=== PATIENT | female | born 1945 | race Asian ===

== ENCOUNTER 2021-08-04 15:39 | Emergency (ER) | payer MEDICARE, MEDICAID ==
[~2021-08-04] VITALS: Ht 121.9 cm; Wt 54.5 kg
[2021-08-04 18:24] LABS: BASOPHILS % (AUTO) 0.5 % (0-1); EOSINOPHILS # (AUTO) 0.1 X10'3 (0-0.9); EOSINOPHILS % (AUTO) 1.9 % (0-6); HEMATOCRIT 35.3 % (35.0-45.0); HEMOGLOBIN 11.8 g/dl (12.0-16.0); LYMPHOCYTES # (AUTO) 1.4 X10'3 (1.1-4.8); LYMPHOCYTES % (AUTO) 27.8 % (21-51); MEAN CORPUSCULAR HGB CONC 33.4 g/dL (33.0-36.5); MEAN CORPUSCULAR VOLUME 98.8 FL (78-98); MEAN PLATELET VOLUME 7.1 FL (7.4-10.4); MONOCYTES # (AUTO) 0.3 X10'3 (0-0.9); MONOCYTES % (AUTO) 6.6 % (2-12); NEUTROPHILS # (AUTO) 3.1 X10'3 (1.8-7.7); NEUTROPHILS % (AUTO) 63.2 % (42-75); PLATELET COUNT 137 X10'3 (140-440); RED BLOOD COUNT 3.57 X10'6 (4.20-5.60); RED CELL DISTRIBUTION WIDTH 15.1 % (11.5-14.5); WHITE BLOOD COUNT 4.9 X10'3 (4.5-11.0)
[2021-08-04 18:53] LABS: ALANINE AMINOTRANSFERASE 21 U/L (12-78); ALBUMIN 3.6 G/DL (3.4-5.0); ALBUMIN/GLOBULIN RATIO 0.9 (1.1-1.5); ALKALINE PHOSPHATASE 114 IU/L (46-116); ANION GAP 11 (8-16); ASPARTATE AMINO TRANSFERASE 18 U/L (10-37); BILIRUBIN,TOTAL 0.4 MG/DL (0.1-1.0); BLOOD UREA NITROGEN 27 MG/DL (7-18); BUN/CREATININE RATIO 7.8 (6.6-38.0); CALCIUM 8.1 MG/DL (8.5-10.1); CHLORIDE 101 MMOL/L (99-107); CREATININE 3.48 MG/DL (0.40-0.90); GLUCOSE 102 MG/DL (70-104); POTASSIUM 5.3 MMOL/L (3.5-5.1); SODIUM 137 MMOL/L (135-145); TOTAL CARBON DIOXIDE 25.3 MMOL/L (24-32); TOTAL PROTEIN 7.8 G/DL (6.4-8.2); eGFR 13 ML/MIN
[2021-08-04 18:58] LABS: MAGNESIUM 2.6 MG/DL (1.5-2.4)
[2021-08-04 20:03] VITALS: BP 190/80
== END 2021-08-04 20:06 | disposition home or self-care (01) ==
LOC: ER 15:41
DX: R07.89 Other chest pain (principal); R20.2 Paresthesia of skin; I10 Essential (primary) hypertension
CPT/HCPCS: 36415; 71045; 80053; 83735; 83880; 84484; 85025; 93005; 99285

== ENCOUNTER 2023-09-06 14:58 | Inpatient (IN) | payer MEDICAID, MEDICARE ==
[~2023-09-06] VITALS: Ht 144.8 cm; Wt 60.0 kg
[2023-09-06] MEDS ORDERED: albuterol 2.5 MG/3 ML nebule CONTNEB PRN (15:15)
[2023-09-06] MEDS ORDERED: CefTRIAXone 1000mg IM Kit (w/lidocaine diluent) IM ONE (15:15)
[2023-09-06 15:17] LABS: BASOPHILS % (AUTO) 0.3 % (0-1); EOSINOPHILS # (AUTO) 0.2 X10'3 (0-0.9); EOSINOPHILS % (AUTO) 2.3 % (0-6); HEMOGLOBIN 12.2 g/dl (12.0-16.0); LYMPHOCYTES # (AUTO) 2.8 X10'3 (1.1-4.8); MEAN CORPUSCULAR HEMOGLOBIN 30.2 PG (27.0-31.0); MEAN CORPUSCULAR VOLUME 94.5 FL (78-98); MEAN PLATELET VOLUME 6.9 FL (7.4-10.4); MONOCYTES # (AUTO) 0.5 X10'3 (0-0.9); MONOCYTES % (AUTO) 6.5 % (2-12); NEUTROPHILS # (AUTO) 4.6 X10'3 (1.8-7.7); NEUTROPHILS % (AUTO) 56.9 % (42-75); PLATELET COUNT 196 X10'3 (140-440); RED BLOOD COUNT 4.03 X10'6 (4.20-5.60); RED CELL DISTRIBUTION WIDTH 17.8 % (11.5-14.5); WHITE BLOOD COUNT 8.2 X10'3 (4.5-11.0)
[2023-09-06] MEDS: ipratropium/albuterol 3ml nebule NEB ONE (15:20)
[2023-09-06 15:21] VITALS: PULSE 77; RESP 18; O2SAT 100
[2023-09-06 15:24] VITALS: PULSE 78; RESP 18; O2SAT 100
[2023-09-06 15:28] LABS: ALANINE AMINOTRANSFERASE 16 U/L (12-78); ALBUMIN 3.7 G/DL (3.4-5.0); ALBUMIN/GLOBULIN RATIO 0.8 (1.1-1.5); ALKALINE PHOSPHATASE 138 IU/L (46-116); ANION GAP 13 (8-16); ASPARTATE AMINO TRANSFERASE 25 U/L (10-37); BILIRUBIN,TOTAL 0.5 MG/DL (0.1-1.0); BLOOD UREA NITROGEN 24 MG/DL (7-18); CALCIUM 8.7 MG/DL (8.5-10.1); CHLORIDE 99 MMOL/L (99-107); CREATININE 3.99 MG/DL (0.40-0.90); GLUCOSE 181 MG/DL (70-104); SODIUM 139 MMOL/L (135-145); TOTAL CARBON DIOXIDE 26.9 MMOL/L (24-32); TOTAL PROTEIN 8.2 G/DL (6.4-8.2); eCRCL 7 ML/MIN; eGFR 11 ML/MIN
[2023-09-06] MEDS: dexamethasone sod phosphate 10mg/ml inj IV STA (15:46)
[2023-09-06] MEDS: CefTRIAXone/D5W-Rocephin 1gm 50 ML IV ONE (16:05)
[2023-09-06 16:15] LABS: POTASSIUM 3.9 MMOL/L (3.5-5.1)
[2023-09-06 16:16] LABS: PRO BRAIN NATRIURETIC PEPTIDE > 30000 PG/ML (0-450)
[2023-09-06 16:33] LABS: APTT 27 SECONDS (22-32); INR 1.1 INR; PROTHROMBIN TIME 11.3 SECONDS (9.0-12.0)
[2023-09-06 16:49] LABS: FREE T4 (FREE THYROXINE) 0.96 NG/DL (0.73-1.40); MAGNESIUM 2.3 MG/DL (1.5-2.4); THYROID STIMULATING HORMONE 1.98 ulU/ml (0.34-4.50)
[2023-09-06] MEDS ORDERED: magnesium Cl slow-release 64mg tablet PO PRN (16:50)
[2023-09-06] MEDS ORDERED: potassium Cl 20 mEq SR tablet PO PRN ×2 (16:50)
[2023-09-06] MEDS ORDERED: magnesium 4gm in 100ml NS 100 ML IV PRN (16:50)
[2023-09-06] MEDS ORDERED: acetaminophen 325mg tablet PO PRN (16:50)
[2023-09-06] MEDS ORDERED: ondansetron/PF 4mg/2ml inj IV PRN (16:50)
[2023-09-06] MEDS ORDERED: morphine 2 MG/ML inj. syringe IV PRN (16:50)
[2023-09-06] MEDS ORDERED: potassium Cl 40MEQ/1/2NS 520ml 520 ML IV PRN (16:50)
[2023-09-06] MEDS ORDERED: magnesium 2GM in 50ml NS 50 ML IV PRN (16:50)
[2023-09-06] MEDS: furosemide 10 MG/1 ML 10ml inj IV ONE ×2 (16:51→19:37)
[2023-09-06 17:20] LABS: BILIRUBIN,URINE NEGATIVE (Neg); CLARITY,URINE SLIGHTLY CLOUDY (Clear); COLOR,URINE YELLOW (Yellow); GLUCOSE, URINE 100 mg/dl (Neg); KETONES,URINE NEGATIVE (Neg); LEUKOCYTE ESTERASE ,URINE NEGATIVE (Neg); NITRITES, URINE NEGATIVE (Neg); OCCULT BLOOD,URINE TRACE-INTACT (Neg); PH,URINE 8.5 (4.8-8.0); PROTEIN,URINE >=300 mg/dl (Neg); UROBILINOGEN,URINE 0.2 E.U/dL (0.2-1.0)
[2023-09-06 17:29] LABS: UA COLLECTION TYPE STRAIGHT CATH
[2023-09-06] MEDS ORDERED: albuterol 2.5 MG/3 ML nebule NEB PRN (17:35)
[2023-09-06 17:38] LABS: SQUAMOUS EPITHELIAL CELL,UR MODERATE /LPF (FEW)
[2023-09-06 17:39] LABS: BACTERIA,URINE 1+ /HPF (Neg); MUCUS STRANDS FEW /LPF (Neg); TRANSITIONAL EPI CELLS,URINE MODERATE /HPF
[2023-09-06 17:40] LABS: RBC,URINE 0-2 /HPF (0-2)
[2023-09-06] MEDS: heparin, porcine 5000 units/ml vial SQ SCH (20:26)
[2023-09-06 21:20] VITALS: PULSE 78; RESP 18; O2SAT 98
[2023-09-06 22:00] VITALS: BP 173/69; PULSE 77; TEMP 98.7; O2SAT 99
[2023-09-06 22:30] VITALS: RESP 20; O2SAT 99
[2023-09-06] MEDS: amLODIPine 5mg tablet PO ONE (23:45)
[2023-09-06] MEDS: HYDROcodone/acetaminophen 5mg/325mg tablet PO PRN (23:45)
[2023-09-07] VITALS (17 sets, daily range): BP systolic 105–160; BP diastolic 57–76; PULSE 64–93; RESP 14–18; TEMP 97.6–98.5; O2SAT 95–99
[2023-09-07 06:20] LABS: BASOPHILS % (AUTO) 0.2 % (0-1); EOSINOPHILS % (AUTO) 0 % (0-6); HEMATOCRIT 33.5 % (35.0-45.0); HEMOGLOBIN 10.9 g/dl (12.0-16.0); LYMPHOCYTES % (AUTO) 21.6 % (21-51); MEAN CORPUSCULAR HEMOGLOBIN 30.4 PG (27.0-31.0); MEAN CORPUSCULAR HGB CONC 32.6 g/dL (33.0-36.5); MEAN CORPUSCULAR VOLUME 93.3 FL (78-98); MONOCYTES # (AUTO) 0.2 X10'3 (0-0.9); NEUTROPHILS # (AUTO) 3.4 X10'3 (1.8-7.7); NEUTROPHILS % (AUTO) 73.2 % (42-75); PLATELET COUNT 172 X10'3 (140-440); RED CELL DISTRIBUTION WIDTH 17.9 % (11.5-14.5); WHITE BLOOD COUNT 4.6 X10'3 (4.5-11.0)
[2023-09-07 06:44] LABS: ALANINE AMINOTRANSFERASE 15 U/L (12-78); ALBUMIN 3.4 G/DL (3.4-5.0); ALBUMIN/GLOBULIN RATIO 0.8 (1.1-1.5); ALKALINE PHOSPHATASE 95 IU/L (46-116); ANION GAP 10 (8-16); ASPARTATE AMINO TRANSFERASE 17 U/L (10-37); BILIRUBIN,TOTAL 0.5 MG/DL (0.1-1.0); BLOOD UREA NITROGEN 36 MG/DL (7-18); BUN/CREATININE RATIO 7.2 (10.0-20.0); CALCIUM 8.3 MG/DL (8.5-10.1); CHLORIDE 102 MMOL/L (99-107); CREATININE 4.99 MG/DL (0.40-0.90); GLUCOSE 117 MG/DL (70-104); POTASSIUM 4.6 MMOL/L (3.5-5.1); SODIUM 140 MMOL/L (135-145); TOTAL CARBON DIOXIDE 28.5 MMOL/L (24-32); TOTAL PROTEIN 7.5 G/DL (6.4-8.2); eCRCL 6 ML/MIN; eGFR 8 ML/MIN
[2023-09-07] MEDS ORDERED: LIDOcaine 1% (10mg/ml) 2ml vial SQ ONE (07:05)
[2023-09-07] MEDS ORDERED: normal saline 1000ml 250 ML IV PRN (07:05)
[2023-09-07] MEDS: furosemide 40mg/4ml inj IV SCH (08:10)
[2023-09-07] MEDS: CefTRIAXone 2gm/D5W 50ml BAG 50 ML IV SCH (08:11)
[2023-09-07] MEDS: acetaminophen 325mg tablet PO PRN (08:37)
[2023-09-07] MEDS ORDERED: amLODIPine 5mg tablet PO SCH (08:50)
[2023-09-07 10:27] LABS: CHOL/HDL RATIO 2.2 (0.00-4.99); CHOLESTEROL 157 MG/DL (0-200); HDL CHOLESTEROL 70 MG/DL (35-60); LDL CHOLESTEROL 72 MG/DL (50-100); TRIGLYCERIDES 59 MG/DL (20-135)
[2023-09-07] MEDS: heparin 1,000 units/ml 10ml inj IV ONE (15:06)
[2023-09-07] MEDS: pantoprazole 40mg Tablet.DR PO SCH (18:34)
[2023-09-07] MEDS: metoprolol succinate 25mg (24-HOUR) SR. Tablet PO SCH (18:34)
[2023-09-07] MEDS: furosemide 20 MG/2 ML vial IV SCH (19:40)
[2023-09-07] MEDS ORDERED: GABA-530 PO (22:25)
[2023-09-07] MEDS: temazepam 15mg capsule PO PRN (23:42)
[2023-09-08 02:00] VITALS: BP 110/50; PULSE 78; RESP 16; TEMP 98.2; O2SAT 98
[2023-09-08 07:00] VITALS: BP 139/62; PULSE 55; RESP 18; TEMP 98.4
[2023-09-08 08:01] LABS: BASOPHILS % (AUTO) 0.5 % (0-1); EOSINOPHILS # (AUTO) 0.1 X10'3 (0-0.9); EOSINOPHILS % (AUTO) 1.8 % (0-6); HEMOGLOBIN 11.6 g/dl (12.0-16.0); LYMPHOCYTES % (AUTO) 29.4 % (21-51); MEAN CORPUSCULAR HEMOGLOBIN 30.6 PG (27.0-31.0); MEAN CORPUSCULAR HGB CONC 32.4 g/dL (33.0-36.5); MEAN CORPUSCULAR VOLUME 94.5 FL (78-98); MEAN PLATELET VOLUME 7.3 FL (7.4-10.4); MONOCYTES # (AUTO) 0.6 X10'3 (0-0.9); NEUTROPHILS # (AUTO) 4.1 X10'3 (1.8-7.7); NEUTROPHILS % (AUTO) 59.3 % (42-75); PLATELET COUNT 172 X10'3 (140-440); RED CELL DISTRIBUTION WIDTH 17.7 % (11.5-14.5); WHITE BLOOD COUNT 6.8 X10'3 (4.5-11.0)
[2023-09-08 08:47] LABS: ALANINE AMINOTRANSFERASE 14 U/L (12-78); ALBUMIN 3.2 G/DL (3.4-5.0); ALBUMIN/GLOBULIN RATIO 0.8 (1.1-1.5); ALKALINE PHOSPHATASE 80 IU/L (46-116); ANION GAP 9 (8-16); ASPARTATE AMINO TRANSFERASE 15 U/L (10-37); BILIRUBIN,TOTAL 0.6 MG/DL (0.1-1.0); BLOOD UREA NITROGEN 21 MG/DL (7-18); BUN/CREATININE RATIO 5.8 (10.0-20.0); CALCIUM 8.2 MG/DL (8.5-10.1); CHLORIDE 102 MMOL/L (99-107); CREATININE 3.64 MG/DL (0.40-0.90); GLUCOSE 89 MG/DL (70-104); POTASSIUM 4.2 MMOL/L (3.5-5.1); SODIUM 139 MMOL/L (135-145); TOTAL CARBON DIOXIDE 27.6 MMOL/L (24-32); TOTAL PROTEIN 7.3 G/DL (6.4-8.2); eCRCL 8 ML/MIN; eGFR 12 ML/MIN
[2023-09-08 09:43] VITALS: PULSE 73; RESP 16; O2SAT 95
[2023-09-08] MEDS ORDERED: METO-395 PO (10:12)
[2023-09-08] MEDS ORDERED: PANT40SU2 PO (10:56)
[2023-09-09 14:04] LABS: HBSAG SCREEN Negative (Negative)
== END 2023-09-08 11:46 | disposition home or self-care (01) | DRG 133 ==
LOC: ER 14:59 → ED HOLD 16:54 → EDBEDREQ 21:14 → PCU 3S 22:06
PROVIDERS: ADMIT Internal Medicine; ATTEND Internal Medicine
PROC: 5A1D70Z Performance of Urinary Filtration, Intermittent, Less than 6 Hours Per Day (ICD-10-PCS; principal; 2023-09-07)
DX: J96.01 Acute respiratory failure with hypoxia (principal); I21.A1 Myocardial infarction type 2; I50.33 Acute on chronic diastolic (congestive) heart failure; N18.6 End stage renal disease; I13.2 Hypertensive heart and chronic kidney disease with heart failure and with stage 5 chronic kidney disease, or end stage renal disease; Z20.822 Contact with and (suspected) exposure to COVID-19; K21.9 Gastro-esophageal reflux disease without esophagitis; Z99.2 Dependence on renal dialysis
CPT/HCPCS: 36415; 71045; 80053; 80061; 81001; 83036; 83605; 83735; 83880; 84145; 84439; 84443; 84484; 85025; 85610; 85730; 87040; 87081; 87088; 87340; 87502; 87503; 87811; 93005; 93306; 94640; 94760; 99291; E1594; G0257; G0378; J0696; J1100; J1644; J1940

== ENCOUNTER 2024-06-21 22:18 | Emergency (ER) | payer MEDICARE, MEDICAID ==
[~2024-06-21] VITALS: Ht 121.9 cm; Wt 58.4 kg
[~2024-06-21 22:18] MED LIST: ACET-2778 PO; ALBU1POW2; ERGO400C PO; GABA-530 PO; LOSA50TA64 PO; METO-395 PO; PANT-47 PO; PHO667C PO; SERT-434 PO; TIZA-189 PO; ZAR2.5T PO
[2024-06-21] MEDS: acetaminophen 325mg tablet PO ONE (23:19)
[2024-06-21 23:34] VITALS: BP 142/66; PULSE 60; RESP 16; TEMP 98.6; O2SAT 100
== END 2024-06-21 23:38 | disposition home or self-care (01) ==
LOC: ER 22:19
DX: S00.83XA Contusion of other part of head, initial encounter (principal); Z79.899 Other long term (current) drug therapy; Z91.81 History of falling; W17.89XA Other fall from one level to another, initial encounter; Y93.89 Activity, other specified; Y92.89 Other specified places as the place of occurrence of the external cause; Y99.8 Other external cause status
CPT/HCPCS: 70450; 70486; 72125; 99284

== ENCOUNTER 2025-03-27 17:11 | Emergency (ER) | payer MEDICARE, MEDICAID ==
[~2025-03-27] VITALS: Ht 134.6 cm; Wt 50.0 kg
[~2025-03-27 17:11] MED LIST changes: -ACET-2778 PO; +ACET-3669 PO
[2025-03-27 17:28] VITALS: BP 156/60; PULSE 60; O2SAT 97
--- NOTE | 2025-03-27 18:02 | ELECTROCARDIOGRAPH REPORT ---
[facility] Test Date: 2025-03-27 Test Time: 17:17:06 Pat Name: CON ULLOA Department: EMERGENCY ROOM Room: Gender: F Director Of [employer]: LISSETTE: 1945 Requested By: DEPARTMENT EMERGENCY Order Number: [id number] Reading MD: Measurements Intervals [place] Rate: 60 P: 0 VT: 159 QRS: 6 QRSD: 116 T: 38 QT: 517 QTc: 517 Interpretive Statements A-V dual-paced complexes w/ some inhibition No further analysis attempted due to paced rhythm Artifact in lead(s) I,aVR,aVL,aVF Please click the below link to view image of tracing.
--- NOTE | 2025-03-27 19:20 | RADIOLOGY REPORT ---
EXAM: DI CORRIE RIBS WITH PA CHEST INDICATION: CHEST WALL PAIN AFTER FALL TECHNIQUE: 3 views of the bilateral ribs COMPARISON: DI CHEST,SINGLE VIEW on DOS: 09/20/23 FINDINGS/IMPRESSION: No radiographic evidence of an acute osseous abnormality. There is no acute fracture, osseous malalignment, or aggressive focal osseous lesion. Small left- sided pleural effusion. Peripheral interstitial edema overall appearance of volume overload. Mild cardiomegaly. Right anterior chest cardiac device.
--- NOTE | 2025-03-27 19:34 | Physician Documentation ---
History of Present Illness ~ Chief Complaint: Chest Wall Pain Stated Complaint: FALL Time Seen by MD: 18:34 Primary Medical Doctor: [facility] ER Tetanus within 5 Years?: No Allergies: Coded Allergies: No Known Allergies (Unverified , 03/27/25) Active Prescriptions See Medication Reconciliation Form. Medication Reconciliation Scheduled Acetaminophen (Acetaminophen ER), 1 TAB PO Q8H Calcium Acetate (Calcium Acetate), 2 TAB PO TID, (Reported) Cholecalciferol (Vitamin D3) (Vitamin D3), 1 CAP PO DAILY Gabapentin (Gabapentin), 100 MG PO TID Losartan Potassium (Losartan Potassium), 50 MG PO DAILY Metolazone (ZAROXOLYN tablet), 5 MG PO DAILY Metoprolol Succinate (Metoprolol Succinate), 50 MG PO DAILY Pantoprazole Sodium (PROTONIX tablet), 40 MG PO BID Sertraline HCl (Sertraline HCl), 1 TAB PO DAILY, (Reported) Tizanidine Hcl (Zanaflex), 1 TAB PO HS Miscellaneous Medications Albuterol (Albuterol), (Reported) Review of Systems All Other Systems at this time: Reviewed and Negative Musculoskeletal: Reports: see HPI Physical Exam Vital Signs: Temperature: 97.8, Source: Temporal, Heart Rate: 60, Respiratory Rate: 18, BP: 156/60, Pulse Oximetry: 97, Weight: 50.000 General Appearance: alert, WD/WN, other (Sleeping) EENT: PERRL/EOMI Neck: non-tender Cardiovascular: normal peripheral pulses, regular rate, rhythm; No: tachycardia, diastolic murmur Cardiovascular No bruising no crepitus Respiratory: lungs clear Chest: symmetrical, tender (Mild reproducible pain with palpation to the sternum); No: swelling, crepitance, flail chest, paradoxical motion Gastrointestinal: non-tender Back: normal inspection Extremities: normal range of motion, other (Fistula to left upper extremity) Skin: normal color, warm/dry Neurologic: oriented x4 Lymphatic: normal inspection Psychiatric: normal mood/affect Progress Results/Orders Results/Orders Completed Orders - QUIQUE BARKLEY Hydrocodone/Apap 5/325mg Tab ([place] 5/32 (03/27/25 19:35) Vital Signs 03/27/25 03/27/25 03/27/25 17:28 19:36 19:44 Temp 97.8 97.8 Pulse 60 Resp 18 18 B/P (MAP) 156/60 Pulse Ox 97 Medical Decision Making Differential Dx:Considerations: Include: Chest wall contusion, Flail chest, Myocardial contusion, Pulmonary contusion, Rib fracture Additional Comment 80-year-old female with end-stage renal disease who receives dialysis on Saturdays had a mechanical fall striking her chest against the dresser five days ago. Asked her daughter to bring her to the emergency department tonight for evaluation. No shortness a breath in no obvious bruising to the chest wall. Examination history tonight consistent with chest wall contusion. X-ray imaging reassuring. Patient is provided one time dose of pain management in the emergency department and encouraged to follow up with the primary care physician and to keep your scheduled dialysis appointment. No consideration for flail chest, myocardial contusion rib fracture or pulmonary contusion. Departure Disposition: HOME / SELF CARE / HOMELESS Impression: Primary Impression: Chest wall pain Condition: Stable Additional Instructions: Please continue with Tylenol for pain. Tonight your Chest x-ray is reassuring. You received a single tablet of Hydrocodone. Keep your scheduled dialysis appointment follow up with your primary care physician. Referrals: NO PRIMARY CARE PROVIDER (PCP) Signature Scribe Signature: . Attestation: . QUIQUE BARKLEY PAC Mar 27, 2025 19:34
[2025-03-27 19:36] VITALS: TEMP 97.8
[2025-03-27 19:44] VITALS: RESP 18
[2025-03-27] MEDS: HYDROcodone/acetaminophen 5mg/325mg tablet PO ONE (19:44)
== END 2025-03-27 19:45 | disposition home or self-care (01) ==
LOC: ER 17:11
DX: R07.89 Other chest pain (principal)
CPT/HCPCS: 71111; 93005; 99283